=== PATIENT | male | born 1955 | race African-American/Black ===

== ENCOUNTER 2019-02-26 05:46 | Emergency (ER) | payer SELFPAY ==
[~2019-02-26] VITALS: Ht 162.6 cm; Wt 77.2 kg
[2019-02-26 06:20] VITALS: BP 135/90
[2019-02-26] MEDS ORDERED: KETOROLAC TROMETHAMINE 30 MG/ML VIAL IM ONE (06:30)
[2019-02-26] MEDS ORDERED: CYCLOBENZAPRINE HCL 10 MG TABLET PO ONE (06:30)
[2019-02-26] MEDS ORDERED: LIDOCAINE 5% TRANSDERMAL PATCH TD ONE (06:30)
== END 2019-02-26 07:54 | disposition home or self-care (01) ==
LOC: EMS 05:51
DX: M54.5 Low back pain (principal)
CPT/HCPCS: 96372; 99283; J1885

== ENCOUNTER 2023-11-05 14:53 | Emergency (ER) | payer MEDICARE ==
[~2023-11-05] VITALS: Ht 167.6 cm; Wt 77.3 kg
[2023-11-05 14:58] VITALS: TEMP 98
[2023-11-05] MEDS: KETOROLAC TROMETHAMINE 30 MG/ML VIAL IM ONE (16:22)
[2023-11-05] MEDS: OxyCODONE HCL/ACETAMINOPHEN 5-325 MG TABLET PO ONE (16:22)
[2023-11-05] MEDS: CYCLOBENZAPRINE HCL 10 MG TABLET PO ONE (16:22)
[2023-11-05] MEDS ORDERED: IBUP-2492 PO (18:09)
[2023-11-05] MEDS ORDERED: CYCL-448 PO (18:10)
[2023-11-05 18:28] VITALS: BP 141/85; PULSE 84; RESP 16
[2023-11-05] MEDS ORDERED: VASOPRESSIN 40 UNITS in DEXTROSE 5%-WATER 98 ML IV PRN (19:30)
== END 2023-11-05 19:49 | disposition home or self-care (01) ==
LOC: EMS 14:56
DX: S39.012A Strain of muscle, fascia and tendon of lower back, initial encounter (principal); X50.0XXA Overexertion from strenuous movement or load, initial encounter; Y93.89 Activity, other specified; Y92.89 Other specified places as the place of occurrence of the external cause; Y99.8 Other external cause status
CPT/HCPCS: 99283; 96372; J1885